=== PATIENT | female | born 1975 | race Caucasian/White ===

== ENCOUNTER 2017-05-28 17:04 | Emergency (ER) | payer BC, OTHER ==
[~2017-05-28] VITALS: Ht 167.6 cm; Wt 78.0 kg
[2017-05-28 17:06] VITALS: TEMP 37.3; Ht 167.6 cm; Wt 78.0 kg
[2017-05-28] MEDS ORDERED: IBUPROFEN 600 MG TAB PO STA (17:24)
[2017-05-28] MEDS ORDERED: MULT-513 PO (17:49)
[2017-05-28] MEDS ORDERED: IBUP-1050 PO (17:49)
--- NOTE | 2017-05-28 18:19 | DIAGNOSTIC IMAGING REPORT ---
L ANKLE MIN 3 VIEWS ROUTINE CLINICAL HISTORY: 42 years-old Female presenting with left ankle pain/swellin. TECHNIQUE: Frontal, mortise, and lateral views of the left ankle were obtained. COMPARISON: None. FINDINGS: No acute fracture or malalignment. No advanced degenerative change. No radiographic soft tissue abnormality. IMPRESSION: No acute osseous injury of the left ankle. Electronically signed by: Jay Mccollum M.D. 05/28/2017 6:18 PM Dictated Date/Time: 05/28/2017 6:17 PM
--- NOTE | 2017-05-28 18:22 | EMERGENCY ROOM VISIT NOTE ---
ED Visit Note First contact with patient: 17:16 CHIEF COMPLAINT: Left ankle pain HISTORY OF PRESENT ILLNESS: This 42-year-old female patient presents to the emergency department, ambulatory, approximately 6 hours after sustaining an injury to the left ankle and foot with a twisting, inversion motion while walking down the stairs. The patient states she slipped on the step, falling down 2 steps outside. She states she did notice a twisting of the ankle, and thinks she may have heard a noise like a crack. The patient complains of pain along the outside of the ankle. The patient denies pain of the foot. The patient rates the pain as throbbing and 5/10. The patient is able to bear weight on the foot, however this significantly worsens the pain. Constant pain , worse with movement, weight bearing, and the dependent position. No knee pain , the patient is able to move their toes. No numbness or weakness of the foot, no laceration. The patient has not had a previous fracture to this ankle. The patient has taken nothing for the pain. The patient denies any other injury. REVIEW OF SYSTEMS: A 6 system review of systems was completed with positives and pertinent negatives listed in the HPI. ALLERGIES: None MEDICATIONS: None PMH: None SOCIAL HISTORY: The patient lives locally with family. She denies drug, alcohol , tobacco use. PHYSICAL EXAM: Vital Signs: Reviewed Nurse's notes, vital signs stable. GENERAL : This is a 42-year-old white female, no acute distress, but appears in pain, well-developed, well-nourished. MENTAL STATUS: Alert, oriented to person place and time, and cooperative. MUSCULOSKELETAL: The left ankle is swollen and tender over the lateral malleolus, but the skin is intact and there is no ligamentous instability. There is some mild swelling over the medial malleolus. There is ecchymosis noted on the medial and lateral aspects of the ankle. There is no fifth metatarsal tenderness. There is no tenderness over the rest of the foot. There is no calf or tibia/fibular tenderness. There is no visual deformity. The foot and toes are warm and well-perfused. Dorsalis pedis pulse 2+. Sensation to pain and light touch is intact. Capillary refill less than 2 seconds. RADIOLOGY: L ANKLE MIN 3 VIEWS ROUTINE CLINICAL HISTORY: 42 years-old Female presenting with left ankle pain/swellin. TECHNIQUE: Frontal, mortise, and lateral views of the left ankle were obtained. COMPARISON: None. FINDINGS: No acute fracture or malalignment. No advanced degenerative change. No radiographic soft tissue abnormality. IMPRESSION: No acute osseous injury of the left ankle. Electronically signed by: Jay Mccollum M.D. 05/28/2017 6:18 PM Dictated Date/Time: 05/28/2017 6:17 PM EMERGENCY DEPARTMENT COURSE: I examined the patient. She was given 600 mg ibuprofen for her discomfort. X-rays of the left ankle were reviewed by myself and read by radiology and reveal no acute fracture or bony abnormalities. I did offer a gel splint or surgery or splint, but the patient preferred an Wai wrap. The patient was offered stronger pain medication and declines. An Wai wrap was applied to the ankle under my direction and the position was satisfactory. Neurovascular status was rechecked and intact. The patient was instructed on the use of crutches. The patient was discharged home in good condition. I attest that I have personally reviewed the patient's current medication list. Blood Pressure Screening: Patient was found to have a slightly elevated blood pressure due to circumstances. I do not believe that the patient requires hypertension monitoring. Etiologies such as soft tissue injury, fracture, dislocation, neurovascular compromise, compartment syndrome, as well as others were entertained. DIAGNOSIS: Left ankle sprain The chart was completed utilizing [employer] Speech voice recognition software. Grammatical errors, random word insertions, pronoun errors, and incomplete sentences are an occasional consequence of this system due to software limitations, ambient noise, and hardware issues. Any formal questions or concerns about the content, text, or information contained within the body of this dictation should be directly addressed to the provider for clarification. Current/Historical Medications Scheduled Ibuprofen (Advil), 400 MG PO PRN UD Multivitamins/Minerals (Mvi With Minerals), 1 TAB PO DAILY Allergies Coded Allergies: No Known Allergies (Verified Allergy, Unknown, 07/10/03) Vital Signs Date Time Temp Pulse Resp B/P (MAP) Pulse Ox O2 Delivery O2 Flow Rate FiO2 05/28/17 19:09 80 18 146/73 97 05/28/17 17:06 37.3 102 18 151/102 95 Room Air Medications Administered Medications (Trade) Dose Ordered Sig/Samanta Route Start Time Stop Time Status Last Admin Dose Admin Ibuprofen (Motrin Tab) 600 mg NOW STAT PO 05/28/17 17:24 05/28/17 17:25 DC 05/28/17 17:43 600 MG Departure Information Impression Primary Impression: Left ankle sprain Dispostion Home / Self-Care Condition GOOD Referrals Santos Taylor III, M.D. (PCP) Patient Instructions ED Sprain Ankle, [facility] Additional Instructions You have been treated in the Emergency Department for an Ankle sprain. For pain control, you can use the following [id number] medicines (if >12 yo): Ibuprofen(Motrin, Advil) may be used for fever or pain. Use 600mg every six hours as needed. Take with food. Avoid using more than 2400mg in a 24 hour period. Do not use 2400mg per day for more than three consecutive days without physician direction. Prolonged inappropriate use can lead to stomach upset or ulcers. (AND/OR) Acetaminophen(Tylenol) may be used for fever or pain. Use 1000mg every six hours as needed. Avoid using more than 3000mg in a 24 hour period. If this is a recent injury (<24 hrs), ice can be applied to the area of pain for the first 3 days to help decrease pain and inflammation. Contact orthopedics if no improvement in 1-2 weeks. Use the wai wrap to help with compression and discomfort. Wear supportive footwear. Use the crutches you have been provided to keep ALL weight off of the ankle until weight bearing is tolerable. Return to the Emergency Department if your current symptoms worsen despite treatment course outlined above, or if you develop any of the following symptoms : intractable pain despite aforementioned treatment course or new onset of numbness or tingling of the foot. Problem Qualifiers Primary Impression: Left ankle sprain Encounter type: initial encounter Involved ligament of ankle: unspecified ligament Qualified Codes: S93.402A - Sprain of unspecified ligament of left ankle, initial encounter
[2017-05-28 19:09] VITALS: BP 146/73; PULSE 80; O2SAT 97
== END 2017-05-28 19:10 | disposition home or self-care (01) ==
LOC: C.EDB 17:06 → C.EDD 19:10
DX: S93.402A Sprain of unspecified ligament of left ankle, initial encounter (principal); W10.9XXA Fall (on) (from) unspecified stairs and steps, initial encounter